=== PATIENT | male | born 1955 | race Caucasian/White ===

== ENCOUNTER 2019-03-11 13:04 | Inpatient (IN) | payer MEDICARE, OTHER ==
[~2019-03-11] VITALS: Ht 167.6 cm; Wt 71.0 kg
[~2019-03-11 13:04] MED LIST: AMLO-145 PO; AMLO-147 PO; ASPI-831 PO; ATOR-2 PO; GABA300C16 PO; HYDR-3672 PO; INSU100C SQ; INSU100I33 SC; Insulin Glargine SC; LOSA50TA14 PO; LOSA50TA2 PO; METF100010 PO; NOVO3I SC; OXCA300T41 PO
[2019-03-11] MEDS ORDERED: SOD CHLORIDE 0.9% 1,000 ML IV STA (14:33)
[2019-03-11] MEDS ORDERED: LACTATED RINGER'S 1,000 ML IV STA (14:33)
[2019-03-11] MEDS ORDERED: ONDANSETRON 4 MG INJ IV PRN ×2 (16:30→17:00)
[2019-03-11] MEDS ORDERED: ACETAMINOPHEN 325 MG TAB PO PRN (16:30)
[2019-03-11] MEDS ORDERED: INSULIN ASPART [NOVOLOG] 3 ML PEN SC ONE (17:00)
[2019-03-11] MEDS ORDERED: NACL 0.9% 3 ML SYG IV SCH (17:00)
[2019-03-11] MEDS ORDERED: ACCU-CHEK XX ONE (17:00)
[2019-03-11] MEDS ORDERED: DOCUSATE SODIUM 100 MG CAP PO PRN (17:00)
[2019-03-11] MEDS ORDERED: MAGNESIUM HYDROXIDE 30ML CUP PO PRN (17:00)
[2019-03-11] MEDS ORDERED: INSULIN ASPART [NOVOLOG] 3 ML PEN SC SCH (17:00)
[2019-03-11] MEDS ORDERED: LORAZEPAM 2 MG INJ IV PRN (17:00)
[2019-03-11] MEDS ORDERED: GLUCOSE GEL 15 GRAM TUBE BUCCAL PRN (17:30)
[2019-03-11] MEDS ORDERED: DEXTROSE 50% 50 ML SYRINGE IV PRN ×2 (17:30)
[2019-03-11] MEDS ORDERED: GLUCOSE GEL 15 GRAM TUBE PO PRN ×2 (17:30)
[2019-03-11] MEDS ORDERED: GLUCAGON 1 MG INJ IM PRN (17:30)
[2019-03-11] MEDS ORDERED: LORAZEPAM 2 MG INJ IV ONE (17:30)
[2019-03-11] MEDS: SOD CHLORIDE 0.9% 1,000 ML IV SCH (19:34)
[2019-03-11] MEDS: INSULIN GLARGINE [LANTus] (100 UNITS/ML) SYG SC SCH (21:00)
[2019-03-11] MEDS: INSULIN ASPART [NOVOLOG] 3 ML PEN SC SCH (21:00)
[2019-03-11] MEDS: ATORVASTATIN 80 MG TAB PO SCH (21:00)
[2019-03-11 22:08] VITALS: Ht 167.6 cm; Wt 71.0 kg
[2019-03-11] MEDS: FAMOTIDINE 20 MG INJ IV SCH (22:26)
[2019-03-12] VITALS: BP 160/95; PULSE 85; RESP 18
[2019-03-12] MEDS: INSULIN ASPART [NOVOLOG] 3 ML PEN SC SCH ×5 (01:00→20:57)
[2019-03-12] MEDS: SOD CHLORIDE 0.9% 1,000 ML IV SCH ×3 (02:35→22:35)
[2019-03-12 03:59] VITALS: BP 165/89; PULSE 85; RESP 18
[2019-03-12] MEDS: GABAPENTIN 300 MG CAP PO SCH (08:29)
[2019-03-12] MEDS: FAMOTIDINE 20 MG INJ IV SCH ×2 (08:29→20:25)
[2019-03-12] MEDS: ASPIRIN 81 MG TAB PO SCH (08:29)
[2019-03-12] MEDS ORDERED: MAGNESIUM SULFATE 2 GM/50 ML 50 ML IVPB ONE (08:30)
[2019-03-12] MEDS: INSULIN GLARGINE [LANTus] (100 UNITS/ML) SYG SC SCH ×2 (08:46→20:56)
[2019-03-12 08:53] VITALS: BP 167/103; PULSE 104; RESP 18
[2019-03-12] MEDS: POTASSIUM CHLORIDE 100 ML IVPB SCH ×3 (10:10→17:46)
[2019-03-12] MEDS ORDERED: SOD CHLORIDE 0.9% 100 ML ONE (10:49)
[2019-03-12] MEDS ORDERED: IODIXANOL LOCM 100 ML BTL ONE (10:50)
[2019-03-12 11:07] VITALS: BP 165/94; PULSE 103; RESP 18
[2019-03-12] MEDS: AMLODIPINE 5 MG TAB PO SCH (13:39)
[2019-03-12] MEDS: LOSARTAN 50 MG TAB PO SCH (13:40)
[2019-03-12 15:25] VITALS: BP 165/84; PULSE 90; RESP 18
[2019-03-12 19:54] VITALS: BP 159/94; PULSE 95; RESP 21
[2019-03-12] MEDS: ATORVASTATIN 80 MG TAB PO SCH (20:24)
[2019-03-13] VITALS: BP 152/75; PULSE 75; RESP 20
[2019-03-13 04:00] VITALS: BP 150/85; PULSE 81; RESP 19
[2019-03-13] MEDS: SOD CHLORIDE 0.9% 1,000 ML IV SCH ×2 (05:32→17:11)
[2019-03-13 07:31] VITALS: BP 149/97; PULSE 94; RESP 20
[2019-03-13] MEDS: FAMOTIDINE 20 MG INJ IV SCH ×2 (08:07→20:55)
[2019-03-13] MEDS: ASPIRIN 81 MG TAB PO SCH (08:07)
[2019-03-13] MEDS: AMLODIPINE 5 MG TAB PO SCH (08:08)
[2019-03-13] MEDS: GABAPENTIN 300 MG CAP PO SCH (08:09)
[2019-03-13] MEDS: LOSARTAN 50 MG TAB PO SCH (08:09)
[2019-03-13] MEDS: INSULIN ASPART [NOVOLOG] 3 ML PEN SC SCH ×4 (08:18→21:03)
[2019-03-13 10:58] VITALS: BP 147/78; PULSE 74; RESP 20
[2019-03-13] MEDS: INSULIN GLARGINE [LANTus] (100 UNITS/ML) SYG SC SCH ×2 (12:16→21:42)
[2019-03-13 15:25] VITALS: BP 131/58; PULSE 80; RESP 20
[2019-03-13 20:00] VITALS: BP 156/90; PULSE 93; RESP 19
[2019-03-13] MEDS: ATORVASTATIN 80 MG TAB PO SCH (20:55)
[2019-03-14] VITALS (7 sets, daily range): BP systolic 145–168; BP diastolic 80–91; PULSE 69–95; RESP 18–20
[2019-03-14] MEDS: SOD CHLORIDE 0.9% 1,000 ML IV SCH ×2 (03:21→12:31)
[2019-03-14] MEDS: ASPIRIN 81 MG TAB PO SCH (08:10)
[2019-03-14] MEDS: GABAPENTIN 300 MG CAP PO SCH (08:11)
[2019-03-14] MEDS: FAMOTIDINE 20 MG INJ IV SCH ×2 (08:11→20:36)
[2019-03-14] MEDS: AMLODIPINE 5 MG TAB PO SCH (08:11)
[2019-03-14] MEDS: LOSARTAN 50 MG TAB PO SCH (08:30)
[2019-03-14] MEDS: INSULIN GLARGINE [LANTus] (100 UNITS/ML) SYG SC SCH ×2 (08:53→21:43)
[2019-03-14] MEDS: INSULIN ASPART [NOVOLOG] 3 ML PEN SC SCH ×4 (08:53→20:46)
[2019-03-14] MEDS: ATORVASTATIN 80 MG TAB PO SCH (20:36)
[2019-03-15 04:08] VITALS: BP 118/80; PULSE 111; RESP 20
[2019-03-15] MEDS: INSULIN ASPART [NOVOLOG] 3 ML PEN SC SCH ×4 (07:25→20:55)
[2019-03-15 07:29] VITALS: BP 116/68; PULSE 56; RESP 20
[2019-03-15] MEDS: ASPIRIN 81 MG TAB PO SCH (09:36)
[2019-03-15] MEDS: FAMOTIDINE 20 MG INJ IV SCH ×2 (09:36→20:45)
[2019-03-15] MEDS: GABAPENTIN 300 MG CAP PO SCH (09:37)
[2019-03-15] MEDS: AMLODIPINE 5 MG TAB PO SCH (09:38)
[2019-03-15] MEDS: LOSARTAN 50 MG TAB PO SCH (09:38)
[2019-03-15 10:59] VITALS: BP 146/95; PULSE 99; RESP 20
[2019-03-15] MEDS: INSULIN GLARGINE [LANTus] (100 UNITS/ML) SYG SC SCH ×2 (12:30→22:34)
[2019-03-15 14:59] VITALS: BP 136/79; PULSE 89; RESP 20
[2019-03-15 19:49] VITALS: BP_SYST 114; BP_SYST 130; BP_DIAS 68; BP_DIAS 76; PULSE 59; PULSE 92; RESP 18; RESP 20
[2019-03-15] MEDS: ATORVASTATIN 80 MG TAB PO SCH (20:45)
[2019-03-16] VITALS (7 sets, daily range): BP systolic 124–175; BP diastolic 69–96; PULSE 72–98; RESP 17–20
[2019-03-16] MEDS: INSULIN ASPART [NOVOLOG] 3 ML PEN SC SCH ×5 (08:15→21:00)
[2019-03-16] MEDS: FAMOTIDINE 20 MG INJ IV SCH (08:27)
[2019-03-16] MEDS: GABAPENTIN 300 MG CAP PO SCH (08:27)
[2019-03-16] MEDS: AMLODIPINE 5 MG TAB PO SCH (08:28)
[2019-03-16] MEDS: LOSARTAN 50 MG TAB PO SCH (08:28)
[2019-03-16] MEDS: ASPIRIN 81 MG TAB PO SCH (08:28)
[2019-03-16] MEDS: OXCARBAZEPINE 300 MG TAB PO SCH ×2 (11:58→20:40)
[2019-03-16] MEDS: INSULIN GLARGINE [LANTus] (100 UNITS/ML) SYG SC SCH ×2 (12:01→23:34)
[2019-03-16] MEDS: FAMOTIDINE 20 MG TAB PO SCH (20:39)
[2019-03-16] MEDS: ATORVASTATIN 80 MG TAB PO SCH (20:39)
[2019-03-17] MEDS: ACCU-CHEK XX SCH (02:00)
[2019-03-17 07:36] VITALS: BP 155/91; PULSE 82; RESP 19
[2019-03-17] MEDS: OXCARBAZEPINE 300 MG TAB PO SCH ×2 (08:19→21:20)
[2019-03-17] MEDS: GABAPENTIN 300 MG CAP PO SCH (08:19)
[2019-03-17] MEDS: FAMOTIDINE 20 MG TAB PO SCH ×2 (08:19→21:20)
[2019-03-17] MEDS: ASPIRIN 81 MG TAB PO SCH (08:20)
[2019-03-17] MEDS: INSULIN GLARGINE [LANTus] (100 UNITS/ML) SYG SC SCH ×2 (08:20→21:22)
[2019-03-17] MEDS: INSULIN ASPART [NOVOLOG] 3 ML PEN SC SCH ×6 (08:21→18:06)
[2019-03-17] MEDS: AMLODIPINE 5 MG TAB PO SCH (08:22)
[2019-03-17] MEDS: LOSARTAN 50 MG TAB PO SCH (08:23)
[2019-03-17] MEDS ORDERED: MAGNESIUM SULFATE 1 GM/D5W 100 ML IVPB ONE (13:30)
[2019-03-17 14:28] VITALS: BP 126/68; PULSE 72; RESP 19
[2019-03-17 19:24] VITALS: BP 123/74; PULSE 88; RESP 18
[2019-03-17] MEDS: ATORVASTATIN 80 MG TAB PO SCH (21:20)
[2019-03-17] MEDS: Insulin NOVOLOG SS MODERATE Algorithm (SS with meals and bedtime) SC SCH (21:30)
[2019-03-18 01:46] VITALS: BP 165/70; PULSE 60; PULSE 94; RESP 16
[2019-03-18] MEDS: ACCU-CHEK XX SCH (02:00)
[2019-03-18 08:29] VITALS: BP 137/82; PULSE 92; RESP 18
[2019-03-18] MEDS: OXCARBAZEPINE 300 MG TAB PO SCH (08:55)
[2019-03-18] MEDS: LOSARTAN 50 MG TAB PO SCH (08:55)
[2019-03-18] MEDS: GABAPENTIN 300 MG CAP PO SCH (08:55)
[2019-03-18] MEDS: FAMOTIDINE 20 MG TAB PO SCH (08:55)
[2019-03-18] MEDS: ASPIRIN 81 MG TAB PO SCH (08:55)
[2019-03-18] MEDS: AMLODIPINE 5 MG TAB PO SCH (08:56)
[2019-03-18] MEDS: INSULIN GLARGINE [LANTus] (100 UNITS/ML) SYG SC SCH (08:57)
[2019-03-18] MEDS: INSULIN ASPART [NOVOLOG] 3 ML PEN SC SCH ×3 (08:58→18:17)
[2019-03-18] MEDS: Insulin NOVOLOG SS MODERATE Algorithm (SS with meals and bedtime) SC SCH ×2 (11:40→17:55)
== END 2019-03-18 18:23 | DRG 91 ==
LOC: E/R 13:04 → TEL 16:01 → MS1 03-16 23:08
PROVIDERS: ADMIT Internal Medicine; ATTEND Internal Medicine
DX: R47.1 Dysarthria and anarthria (principal); I62.00 Nontraumatic subdural hemorrhage, unspecified; E11.65 Type 2 diabetes mellitus with hyperglycemia; E78.5 Hyperlipidemia, unspecified; S91.109A Unspecified open wound of unspecified toe(s) without damage to nail, initial encounter; X58.XXXA Exposure to other specified factors, initial encounter; I10 Essential (primary) hypertension; H02.403 Unspecified ptosis of bilateral eyelids; Z86.73 Personal history of transient ischemic attack (TIA), and cerebral infarction without residual deficits
CPT/HCPCS: 36415; 70450; 70544; 70551; 71045; 71260; 80048; 80053; 80061; 80307; 81001; 82962; 83036; 83519; 83735; 84100; 84443; 84484; 85025; 85610; 85730; 86703; 92507; 92523; 92526; 92610; 93005; 93306; 93880; 95819; 97110; 97116; 97162; 97167; 97530; J1815; J2060; J3475; J3480; J7030; J7120; Q9967